=== PATIENT | female | born 1965 | race Caucasian/White ===

== ENCOUNTER → 2018-03-16 16:57 | Outpatient (CLI) | payer BC, SELFPAY ==
[2018-03-16 17:34] LABS: Absolute Lymphocyte Count 1.96 X10^3/ul (0.83-4.51); Basophil# 0.04 X10^3/uL; Basophil% 0.6 % (0-1); Eosinophil# 0.25 X10^3/uL; Eosinophils% 3.6 % (0-5); Hematocrit 42.2 % (37-47); Lymphocyte # 1.96 X10^3/ul (4.0); Lymphocyte % 28.2 % (19-41); Mean Corp Hgb Conc 33.2 g/gl (32-36); Mean Corpuscular Volume 93.4 fL (81-99); Mean Platelet Vol. 10.5 fl (6.2-12.0); Monocyte# 0.69 X10^3/uL; Monocyte% 9.9 % (0-10); Neutrophil # 3.99 X10^3/uL (2.7-7.7); Neutrophil % 57.6 % (47-70); Platelet Count 291 K/mm3 (150-450); RBC Distribution Width CV 12.9 % (11.6-14.6); RBC Distribution Width SD 42.9 fl (35.1-43.9); Red Blood Count 4.52 M/mm3 (4.2-5.4); White Blood Count 6.9 K/mm3 (4.4-11.0)
[2018-03-16 17:52] LABS: POSITIVE COUNT NO; POSITIVE DIFFERENTIAL NO; POSITIVE MORPHOLOGY NO
[2018-03-16 17:53] LABS: Hemoglobin A1c 5.4 % (4.2-6.3)
[2018-03-16 18:02] LABS: AST(SGOT) 22 U/L (15-37); Alanine Aminotransfer ALT/SGPT 35 U/L (13-56); Alkaline Phosphatase 74 U/L (45-117); Anion Gap 5 (5-15); BUN 13 mg/dL (7-18); BUN/Creat Ratio 15.9 RATIO (10-20); Calcium,Total 8.8 mg/dL (8.5-10.1); Chloride 103 mmol/L (98-107); Creatinine, Serum 0.82 mg/dL (0.55-1.02); EST Glomerular Filtration Rate 78 mL/min (>60); Est Glom Filt Rate - Afr Amer 94 mL/min (>60); Globulin 4.1 g/dL (2.2-4.2); Glucose 86 mg/dL (74-106); Potassium 3.6 mmol/L (3.5-5.1); Protein, Total 8.1 g/dL (6.4-8.2); Sodium Level 139 mmol/L (136-145); Thyroid Stim Hormone (TSH) 1.41 uIU/mL (0.358-3.74)
== END ==
PROVIDERS: Family Provider Family Medicine; PCP Family Medicine; Visit Provider Family Medicine
DX: R20.0 Anesthesia of skin (principal)
CPT/HCPCS: 36415; 80053; 83036; 84443; 85025

== ENCOUNTER 2018-06-26 18:37 | Emergency (ER) | payer BC, SELFPAY ==
[2018-06-26 18:38] VITALS: BP 159/94; PULSE 72; RESP 14; TEMP 36.9; O2SAT 99; BMI 37.8
--- NOTE | 2018-06-26 18:49 | RAD_ITS ---
STUDY: X-RAY - LEFT SHOULDER REASON FOR EXAM: Female, 53 years old. Left shoulder and arm pain after fall. TECHNIQUE: 4 view(s) of the shoulder. COMPARISON: Left humerus, June 26, 2018. FINDINGS: Normal glenohumeral articulation. Normal acromioclavicular joint. Normal acromion. There is no acute fracture, dislocation or destructive osseous pathology. Normal humeral head and visualized proximal humerus. The soft tissue structures are unremarkable. Normal visualized pulmonary apex. RAD/Shoulder min 2 Views IMPRESSION: Normal x-ray examination of the shoulder. Electronically Signed: Heath Stevens DO at 19:21 EDT Tel [phone], Service support ,
--- NOTE | 2018-06-26 18:50 | ED.VISSUMM ---
- ER Visit Summary Date of Service: 06/26/18 Chief Complaint: Left shoulder pain post fall History of Present Illness: The patient is a 53 F no significant past medical history. Prior hysterectomy. Patient was going down steps carrying her dog she missed a step fell landing on cement injuring her left shoulder. She is right-hand dominant. She denies hitting her head. No LOC. No neck or back pain. Had a mild abrasion to her left knee which they Band-Aided at home. Denies other injuries. She is on no blood thinners. Physical Examination: Well-appearing middle-age female. No acute distress. Vital signs stable afebrile. H EENT exam atraumatic. Pupils round reactive light. No trauma to her face or scalp. Nontender. C-spine nontender. Trachea midline. Full range of motion her neck. Lungs clear to auscultation bilaterally. Heart regular rhythm no murmur. Chest wall nontender. Abdomen soft nontender. Normal bowel sounds no hernial signs. Pelvic girdle intact. She is moving all 4 extremities. They are neurovascularly intact. She is mild tenderness to her left shoulder and mid left humerus. No deformity. Left elbow and wrist and hand are nontender with normal range of motion extension of the left hand. Full flexion-extension of left wrist. Full flexion-extension of the left elbow. She has normal range of motion to the left shoulder but has some discomfort. There are no gross bony deformities. Left clavicle is intact. Strong left radial pulse. Other extremities are nontender. Superficial abrasion left knee. Back is nontender. No spine tenderness. Neurologically she is awake alert. No focal motor deficits. GCS of 15. Test Results: Left shoulder x-ray 3 views shows no acute abnormality. Left humerus 2 views shows no acute abnormality. Both read by myself and the radiologist. Emergency Department Course and Treatment: Patient deferred any medications for pain this time. Repeat exam at night discharged home. Treatment Plan: Ice to the shoulder. Motrin for pain. Follow-up if not improving. Disposition: discharge Impression: Acute fall down one step Acute left shoulder contusion This note was generated with [employer] dictation software. It may contain incorrect words, spelling, and punctuation that were not noted in review of the chart prior to signing ED Disposition - Plan for ED Patient: Chief Complaint: Upper Extremity Injury Referrals: Koffi Canales MD [Primary Care Provider] -
--- NOTE | 2018-06-26 18:58 | RAD_ITS ---
STUDY: X-RAY - LEFT HUMERUS REASON FOR EXAM: Female, 53 years old. Left shoulder and arm pain after fall. TECHNIQUE: 2 view(s) of the humerus. COMPARISON: Left shoulder, June 26, 2018. FINDINGS: Normal visualized humerus. There is no demonstrated fracture or osseous destructive process. The shoulder and elbow appear grossly unremarkable. There is no demonstrated soft tissue abnormality. RAD/Humerus min 2 Views IMPRESSION: Normal x-ray examination of the humerus. Electronically Signed: Heath Stevens DO at 19:22 EDT Tel [phone], Service support ,
--- NOTE | 2018-06-26 19:31 | ED.DEP ---
ED Disposition - Plan for ED Patient: Disposition: Home or Assisted Living Chief Complaint: Upper Extremity Injury Instructions: ED Contusion Upper Ext Referrals: Koffi Canales MD [Primary Care Provider] - 1 Week if not improving Additional Instructions: Ice to all sore areas. Motrin and Tylenol for pain. Follow-up with not improving.
[2018-06-26 19:38] VITALS: RESP 18
== END 2018-06-26 19:40 | disposition home or self-care (01) ==
PROVIDERS: Emergency Provider Emergency Medicine; Family Provider Family Medicine; PCP Family Medicine
DX: S40.012A Contusion of left shoulder, initial encounter (principal); S80.212A Abrasion, left knee, initial encounter; W10.9XXA Fall (on) (from) unspecified stairs and steps, initial encounter; Y93.9 Activity, unspecified; Y92.89 Other specified places as the place of occurrence of the external cause; Y99.9 Unspecified external cause status; Z90.710 Acquired absence of both cervix and uterus
CPT/HCPCS: 73030; 73060; 99282

== ENCOUNTER → 2018-07-06 17:11 | Outpatient (CLI) | payer BC, SELFPAY ==
--- NOTE | 2018-07-06 17:14 | RAD_ITS ---
STUDY: X-RAY - LEFT ANKLE REASON FOR EXAM: Female, 53 years old. Injury and pain TECHNIQUE: Three view(s) of the ankle were obtained. COMPARISON: None. FINDINGS: Bones: There are no acute osseous abnormalities. There is moderate spurring off the posterior calcaneus. Joints: The visualized joints are unremarkable. Soft tissues: There is mild soft tissue swelling laterally. RAD/Ankle min 3 Views IMPRESSION: No acute osseous abnormalities are seen. Electronically Signed: Elida Roman MD at 2:09 EDT Tel Direct: [phone], Service support ,
== END ==
PROVIDERS: Family Provider Family Medicine; PCP Family Medicine; Referring Provider Family Medicine; Visit Provider Family Medicine
DX: S93.409A Sprain of unspecified ligament of unspecified ankle, initial encounter (principal)
CPT/HCPCS: 73610

== ENCOUNTER 2020-12-24 07:30 | Outpatient (RCR) | payer BC, SELFPAY ==
[2020-12-24] MEDS: COVID-19 VACC, MRNA(PFIZER)/PF 30 MCG/0.3 ML SYRINGE IM (12:32)
[2021-01-14] MEDS: COVID-19 VACC, MRNA(PFIZER)/PF 30 MCG/0.3 ML SYRINGE IM (12:25)
== END 2021-02-10 23:59 ==
LOC: IMMUN 07:30
PROVIDERS: PCP Family Medicine; Referring Provider Family Medicine; Visit Provider Family Medicine
DX: Z23 Encounter for immunization (principal)
CPT/HCPCS: 0001A; 0002A; 91300